=== PATIENT | male | born 1970 | race Caucasian/White ===

== ENCOUNTER 2017-01-10 17:44 | Emergency (ER) | payer SELFPAY ==
--- NOTE | ~2017-01-10 | CR181 ---
[facility] A Service of [facility] RADIOLOGY TEXT RESULTS PATIENT: SABA CORDERO LOCATION: [facility] : 70 UNIT #: [id number] AGE: [address]: Sarai Ryder SEX: M ORDER DR: [id number] [facility] [address] [place], [place] [address] [id number] E MR#: [id number] Acc #: [id number] NAME: SABA CORDERO. : 1970 SEX: M STUDY DATE/TIME: 01/10/2017 18:09 UNIT: [facility] ROOM: STUDY DESCRIPTION: CR Lumbar Spine 2 or 3 Views Attending Physician: Sarai Ryder P.A.-C. Ordering Physician: Sarai Ryder P.A.-C. Primary Care Physician: Primary Care Physician No MEDICAL IMAGING REPORT This report is preliminary unless electronic signature is present EXAM Lumbar spine series dated 01/10/17. COMPARISON None. HISTORY Left lower back pain today. Patient hurt himself by moving furniture. FINDINGS Three views of the lumbar spine were obtained. Anterior endplate osteophytes are noted at L2-3. No acute displaced fracture, subluxation, destructive bony mass. Surrounding soft tissues are unremarkable. Dictated by... Meli Orantes M.D. THIS IS AN ELECTRONICALLY VERIFIED REPORT Meli Orantes M.D. at 01/11/2017 6:06 PM CPR/psc TD: 01/10/2017 20:00 JOB #: [id number] MEDICAL IMAGING REPORT Page 1 of 1 COPY
[~2017-01-10 17:44] MED LIST: ALBUTEROL17 GM INH; CIPRO PO; KEFLEX250 M2 PO; MOTRIN600 M1 PO; STERAPRED5 MG/DOSE1 PO; TESSALON200 MG PO; VOLTAREN75 MG PO
== END 2017-01-10 18:55 | disposition home or self-care (01) ==
LOC: CED 17:44 → CFTX 17:44
DX: S39.012A Strain of muscle, fascia and tendon of lower back, initial encounter (principal); J44.9 Chronic obstructive pulmonary disease, unspecified; F17.210 Nicotine dependence, cigarettes, uncomplicated; Z98.890 Other specified postprocedural states; X50.9XXA Other and unspecified overexertion or strenuous movements or postures, initial encounter; Y92.009 Unspecified place in unspecified non-institutional (private) residence as the place of occurrence of the external cause
CPT/HCPCS: 72100; 99283